=== PATIENT | female | born 1955 | race Caucasian/White ===

== ENCOUNTER 2021-02-25 09:25 | Outpatient (CLI) | payer MEDICARE, BC | END 2021-02-25 09:26 | disposition home or self-care (01) | LOC: CSHWCC 09:25 | PROVIDERS: ATTEND Nurse Practitioner Family | DX: I87.2 Venous insufficiency (chronic) (peripheral) (principal); R60.0 Localized edema; I10 Essential (primary) hypertension; N17.9 Acute kidney failure, unspecified; T81.31XA Disruption of external operation (surgical) wound, not elsewhere classified, initial encounter; T81.89XA Other complications of procedures, not elsewhere classified, initial encounter; I89.0 Lymphedema, not elsewhere classified | CPT/HCPCS: 97139; G0463; 99213 ==